=== PATIENT | female | born 1980 | race Caucasian/White ===

== ENCOUNTER → 2017-01-04 | Outpatient (CLI) | payer BC | END | disposition home or self-care (01) | LOC: GMA 11:18 | PROVIDERS: ATTEND Physician Assistant | DX: E03.9 Hypothyroidism, unspecified (principal) ==

== ENCOUNTER → 2017-04-05 | Outpatient (CLI) | payer BC | LOC: LAB.REF 10:42 → LAB.O 10:42 → EDSTATUS 16:16 | DX: E03.9 Hypothyroidism, unspecified (principal) ==

== ENCOUNTER → 2018-03-23 | Outpatient (CLI) | payer BC | LOC: GMAM 11:17 | PROVIDERS: ATTEND Family Medicine | DX: E03.9 Hypothyroidism, unspecified (principal) ==

== ENCOUNTER → 2018-04-03 | Outpatient (CLI) | payer BC | LOC: GMAM 14:43 | PROVIDERS: ATTEND Family Medicine | DX: E03.9 Hypothyroidism, unspecified (principal) ==

== ENCOUNTER → 2019-06-26 | Outpatient (CLI) | payer BC | DX: Z00.00 Encounter for general adult medical examination without abnormal findings (principal) ==